=== PATIENT | male | born 1990 | race Caucasian/White ===

== ENCOUNTER 2017-12-22 18:12 | Emergency (ER) | payer OTHER ==
[~2017-12-22] VITALS: Ht 170.2 cm; Wt 69.0 kg
[2017-12-22 20:10] VITALS: BP 120/84
== END 2017-12-22 21:07 | disposition home or self-care (01) ==
LOC: ER 18:12
DX: G44.209 Tension-type headache, unspecified, not intractable (principal); Z88.1 Allergy status to other antibiotic agents

== ENCOUNTER 2019-08-22 23:09 | Emergency (ER) | payer OTHER ==
[~2019-08-22] VITALS: Ht 170.2 cm; Wt 70.3 kg
[2019-08-23 01:40] VITALS: BP 157/83
== END 2019-08-23 01:47 | disposition home or self-care (01) ==
LOC: ER 23:09
DX: S61.512A Laceration without foreign body of left wrist, initial encounter (principal); Z88.1 Allergy status to other antibiotic agents; W26.8XXA Contact with other sharp object(s), not elsewhere classified, initial encounter; Y93.89 Activity, other specified; Y92.89 Other specified places as the place of occurrence of the external cause; Y99.8 Other external cause status

== ENCOUNTER 2019-11-14 21:13 | Emergency (ER) | payer OTHER ==
[~2019-11-14] VITALS: Ht 170.2 cm; Wt 70.3 kg
[2019-11-14 23:11] VITALS: BP 142/76
== END 2019-11-14 23:12 | disposition home or self-care (01) ==
LOC: ER 21:13
DX: R51 Headache (principal); R55 Syncope and collapse; R11.10 Vomiting, unspecified; Z88.1 Allergy status to other antibiotic agents

== ENCOUNTER 2019-11-19 07:14 | Emergency (ER) | payer OTHER ==
[~2019-11-19] VITALS: Ht 170.2 cm; Wt 70.3 kg
[2019-11-19 09:35] VITALS: BP 122/80
== END 2019-11-19 09:36 | disposition home or self-care (01) ==
LOC: ER 07:14
DX: S09.90XA Unspecified injury of head, initial encounter (principal); J02.9 Acute pharyngitis, unspecified; R05 Cough; R19.7 Diarrhea, unspecified; X58.XXXA Exposure to other specified factors, initial encounter; Y93.89 Activity, other specified; Y92.89 Other specified places as the place of occurrence of the external cause; Y99.8 Other external cause status

== ENCOUNTER 2021-09-09 00:41 | Emergency (ER) | payer OTHER ==
[~2021-09-09] VITALS: Ht 170.2 cm; Wt 77.1 kg
[2021-09-09 04:07] VITALS: BP 126/58
== END 2021-09-09 04:08 | disposition home or self-care (01) ==
LOC: ER 00:41
DX: S09.8XXA Other specified injuries of head, initial encounter (principal); Z88.1 Allergy status to other antibiotic agents; W22.8XXA Striking against or struck by other objects, initial encounter; Y93.89 Activity, other specified; Y92.89 Other specified places as the place of occurrence of the external cause; Y99.8 Other external cause status